=== PATIENT | female | born 2005 | race Hispanic/Latino ===

== ENCOUNTER 2024-01-30 09:13 | Emergency (ER) | payer SELFPAY ==
[2024-01-30 09:18] VITALS: BP 128/71
--- NOTE | 2024-01-30 09:29 | ED.GENMED ---
History of Present Illness
General
Chief Complaint: Cold/Flu/URI Symptoms
Time Seen by Provider: 01/30/24 09:22
History of Present Illness
History of Present Illness:
18-year-old previously healthy female presents to the emergency department for evaluation of chest tightness and fever as well as body aches and chills for the past 3 days. Cough is generally dry and nonproductive. No dyspnea. No pleuritic chest
pain. Denies any leg swelling. No ill contacts.
Past History
Past History
ED Past Medical History: None
ED Past Surgical History: None
Patient has exhibited threatening behavior?: No
PSI?: No
Review of Systems
Review of Systems
Allergies reviewed?: Yes
All Other Systems: ROS reviewed and negative except as documented in HPI and ROS
Phy Exam
Physical Exam
Physical Exam:
GEN: Well appearing, NAD, WDWN
HEENT: Oral mucosa moist, no scleral icterus
Cardiac: mildly tachycardic, regular, no murmur
Lung: No respiratory distress, no tachypnea, lungs clear to auscultation bilaterally
MSK: No gross deformity or injuries
Skin: Good color, no pallor or jaundice, no rashes
Neuro: AO x3, moves all extremities freely
Psych: Calm, cooperative
Sepsis
Sepsis Screening
Sepsis Assessment: Sepsis Ruled Out
Sepsis Screen
Sepsis Screen: Sepsis Ruled Out
Date: 01/30/24
Time: 16:43
Course
Orders/Labs/Results
Orders:
Orders
01/30/24 09:28
Acetaminophen [Tylenol] 1,000 mg PO NOW STA
01/30/24 09:35
COVID-19 Antigen Urgent
Source: Nasal Swab
Influenza A+B Rapid Molecular Urgent
HUSEYIN Source: Nasal Swab
Specimen Description:
Vital Signs
Initial and Last Documented VS:
Initial Vital Signs
Temp Pulse Resp BP Pulse Ox
100.8 F H 112 16 128/71 99
01/30/24 09:18 01/30/24 09:18 01/30/24 09:18 01/30/24 09:18 01/30/24 09:18
Last Documented Vital Signs
Temp Pulse Resp BP Pulse Ox
100.8 F H 105 16 118/78 99
01/30/24 09:18 01/30/24 10:15 01/30/24 10:15 01/30/24 10:15 01/30/24 10:15
MDM/Problems Addressed
MDM/Problems Addressed:
Patient positive for influenza A. Not hypoxic with no signs of respiratory distress. No indication for imaging or labs. Do not see indication for antivirals at this time particular given duration of onset. Discussed supportive care
*Critical Care Note
Total Time (30-74mins, 75-104mins- exclusive of procedures): Not Applicable
ED Attending Note
-
Portions of this chart may have been created with voice recognition software.� Occasional wrong word or��sound alike� substitutions may have occurred due to the inherent limitations of voice recognition software.
Discharge Plan
Departure
Patient Disposition: Home (Routine Discharge)
Date of Disposition: 01/30/24
Time of Disposition: 10:01
Patient with high blood pressure during this ER visit?: No
Discharge Problem:
Influenza A
Instructions: Flu in adults - ED discharge instructions
Prescriptions:
No Action
ondansetron 4 mg tablet,disintegrating
4 mg PO TIDPRN PRN (Reason: nausea/vomiting) Qty: 7 0RF
Referrals:
Albert Wilson MD [Family Provider] -
Stand Alone Forms: Return to Work
Interventions
Interventions:
*Risk Screen - Suicide Last Done: 01/30/24 09:18
*General Assessment Last Done: 01/30/24 09:18
*Neglect/Abuse Screening Last Done: 01/30/24 09:18
ED- Fall Risk Assessment Last Done: 01/30/24 10:16
*ED COVID-19 Vaccine History Last Done: 01/30/24 10:16
*Nursing Disposition Last Done: 01/30/24 10:16
ED- Pulmonary Assessment Last Done: 01/30/24 10:16
Discharge Date and Time
Discharge Date/Time: 01/30/24 10:16
Print Language: TELUGU
[2024-01-30] MEDS: TYLENOL 1000 MG PO (09:39)
[2024-01-30 09:57] LABS: COVID-19 Antigen Negative (Negative)
[2024-01-30 10:15] VITALS: BP 118/78
== END 2024-01-30 10:16 | disposition home or self-care (01) ==
LOC: EMR 09:13
PROVIDERS: Physician Assistant; EMERGENCY PHYSICIAN Student in an Organized Health Care Education/Training Program; FAMILY PHYSICIAN Family Medicine
DX: J10.1 Influenza due to other identified influenza virus with other respiratory manifestations (principal)
CPT/HCPCS: 99283; 87502; 87811

== ENCOUNTER 2024-05-31 22:30 | Emergency (ER) | payer SELFPAY ==
[2024-05-31 22:32] VITALS: BP 118/71
[2024-05-31 23:20] VITALS: BMI 40.1
[2024-05-31 23:24] VITALS: BP 104/63
[2024-05-31 23:35] LABS: Urine Albumin 1+ (Neg - Trace); Urine Bilirubin Negative (Negative); Urine Character Clear (Clear); Urine Color Yellow; Urine Glucose Negative (Negative); Urine Ketone Negative (Negative); Urine Leukocyte Negative (Negative); Urine Nitrite Negative (Negative); Urine Occult Blood Negative (Negative); Urine Specific Gravity 1.025 (<1.030); Urine Urobilinogen Negative (Neg - 1+)
[2024-05-31 23:37] LABS: % Basophils 0.6 % (0-2); % Eosinophils 0.8 % (0-6); % Immature Granulocytes 0.2 % (0-0.5); % Lymphocytes 22.5 % (20.5-51.1); % Monocytes 6.2 % (1.7-9.3); % Neutrophils 69.7 % (42.2-75.2); Absolute Basophils 0.1 10^3/uL (0-0.2); Absolute Eosinophils 0.1 10^3/uL (0-0.7); Absolute Lymphocytes 2.4 10^3/uL (1.2-3.4); Absolute Monocytes 0.7 10^3/uL (0.1-0.6); Absolute Neutrophils 7.3 10^3/uL (1.4-6.5); Hematocrit 36.3 % (37.0-47.0); Hemoglobin 12.8 g/dL (12.0-16.0); Mean Corp Hgb Conc. 35.3 g/dL (33.0-37.0); Mean Corpuscular Hgb 32.2 pg (27.0-31.0); Mean Corpuscular Volume 91.4 fL (81.0-99.0); Mean Platelet Volume 9.4 fL (7.4-10.4); Nucleated Red Blood Cells % 0 %; Platelet Count 274 10^3/uL (130-400); Red Blood Cell Count 3.97 10^6/uL (4.20-5.40); Red Cell Dist. Width 12.6 % (11.5-14.5); White Blood Cell Count 10.5 10^3/uL (4.8-10.8)
[2024-05-31 23:53] LABS: ALT (SGPT) 46 U/L (0-35); AST (SGOT) 24 U/L (14-36); Albumin 4.6 g/dl (3.5-5.0); Alkaline Phosphatase 91 U/L (38-126); Blood Urea Nitrogen 10 mg/dl (7-17); Carbon Dioxide 21 mmol/L (22-30); Chloride 109 mmol/L (98-107); Estimated Creatinine Clearance > 125 ml/min; Glucose 96 mg/dl (70-99); Lipase 61 U/L (23-300); Sodium 142 mmol/L (135-145); Total Bilirubin 0.6 mg/dl (0.2-1.3); Total Protein 7.4 g/dl (6.3-8.2); eGFR > 60.00
[2024-05-31 23:55] LABS: HCG, Serum Qualitative Screen Negative
[2024-06-01] VITALS: BP 98/62
[2024-06-01] MEDS: NSS 1000 IV (00:06)
[2024-06-01] MEDS: ZOFRAN 4 MG IV (00:06)
[2024-06-01] MEDS: TORADOL 15 MG IV (00:07)
--- NOTE | 2024-06-01 00:14 | ED.GENMED ---
History of Present Illness
General
Chief Complaint: Abdominal Pain
Time Seen by Provider: 05/31/24 23:14
History of Present Illness
History of Present Illness:
Patient is a 19-year-old woman presenting to the emergency department with diarrhea and abdominal pain. Patient states that she recently came back from [facility] about 2 weeks ago. For the past week she has had daily diarrhea. It is nonbloody.
Today she developed nausea vomiting. She is having cramping sensation in her upper abdomen. She has been having some chills. No recent sick contacts. No antibiotics.
Past History
Past History
ED Past Medical History: None
ED Past Surgical History: None
Patient has exhibited threatening behavior?: No
PSI?: No
Phy Exam
Physical Exam
Physical Exam:
GENERAL: in no acute distress
HEENT: normocephalic, extraocular movements intact, moist oral mucosa
NECK: normal inspection
RESPIRATORY: no respiratory distress, clear to auscultation bilaterally
CARDIOVASCULAR: regular rate and rhythm
ABDOMEN/: soft, non-distended, bilateral upper quadrant tenderness to palpation, no rebound or guarding
EXTREMITIES: non-tender, no edema/swelling
NEUROLOGIC: awake and alert, moves all extremities
SKIN: warm
Course
Orders/Labs/Results
Orders:
Orders
05/31/24 23:03
IV Insert/Care/Rem.- Treatment PRN
05/31/24 23:05
Test Result ONCE
05/31/24 23:18
Complete Blood Count/With Diff Urgent
Comprehensive Metabolic Panel Urgent
HCG, Serum Qualitative Screen Urgent
Comment: Notify provider if positive test present
Lipase Urgent
Urinalysis Reflex To Culture Urgent
Date Specimen was Collected: 05/31/24
Time Specimen was Collected: 23:05
Urine Microscopic Reflex Cult Urgent
06/01/24 00:01
CT Abd/pelvis W Iv Cont Urgent
Comment:
Reason For Exam: upper abd pain
0.9% Sodium Chloride 1000 ml [Nss] 1,000 ml IV BOLUS
Ondansetron Injectable [Zofran] 4 mg IV NOW STA
06/01/24 00:03
Ketorolac [Toradol] 15 mg .ROUTE .STK-MED ONE
06/01/24 00:06
Ketorolac [Toradol] 15 mg IV NOW STA
06/01/24 02:02
Electrocardiogram (*1) Urgent
Reason for Study: QTc Monitoring
EKG- Treatment ONCE
Abnormal Lab Results
05/31/24
23:18
RBC 3.97 L 10^6/uL
(4.20-5.40)
Hct 36.3 L %
(37.0-47.0)
MCH 32.2 H pg
(27.0-31.0)
Absolute Neuts (auto) 7.3 H 10^3/uL
(1.4-6.5)
Absolute Monos (auto) 0.7 H 10^3/uL
(0.1-0.6)
Chloride 109 H mmol/L
(98-107)
Carbon Dioxide 21 L mmol/L
(22-30)
ALT 46 H U/L
(0-35)
Urine Bacteria (Reflex) Few A
(Negative)
Urine Albumin (Reflex) 1+ A
(Neg - Trace)
05/31/24 23:18
05/31/24 23:18
Vital Signs
Initial and Last Documented VS:
Initial Vital Signs
Temp Pulse Resp BP Pulse Ox
98.5 F 97 16 118/71 98
05/31/24 22:32 05/31/24 22:32 05/31/24 22:32 05/31/24 22:32 05/31/24 22:32
Last Documented Vital Signs
Temp Pulse Resp BP Pulse Ox
98.5 F 92 16 109/73 94
05/31/24 22:32 05/31/24 23:24 05/31/24 22:32 06/01/24 02:16 06/01/24 02:12
MDM/Problems Addressed
Differential Diagnosis Includes:
Patient is a 19-year-old woman presenting to the emergency department 6 days of diarrhea and now with vomiting and upper abdominal pain. Vitals are unremarkable and exam does show very mild tenderness to the upper quadrant. Likely viral
gastroenteritis versus pancreatitis versus biliary pathology though less likely. Blood work obtained is unremarkable. Will give fluids antiemetics and pain control. Will proceed with CT abdome.
*Critical Care Note
Total Time (30-74mins, 75-104mins- exclusive of procedures): Not Applicable
Update Note
Update Note:
Blood work is unremarkable. CT scan per my interpretation with no obvious abnormality. Per the official read there is some air-fluid levels in the distal small bowel in prominence of the mesenteric lymph nodes suspicious for gastroenteritis.
Patient is tolerating p.o. Will discharge at this time. Will give short course of Zofran
ED Attending Note
-
Portions of this chart may have been created with voice recognition software.� Occasional wrong word or��sound alike� substitutions may have occurred due to the inherent limitations of voice recognition software.
Discharge Plan
Departure
Patient Disposition: Home (Routine Discharge)
Patient with high blood pressure during this ER visit?: No
Discharge Problem:
Gastroenteritis
Instructions: Diarrhea in teens and adults, Nausea and Vomiting, Adult (DC)
Prescriptions:
New
ondansetron 4 mg tablet,disintegrating
4 mg PO Q8H PRN (Reason: nausea and vomiting) 3 Days Qty: 7 0RF
No Action
ondansetron 4 mg tablet,disintegrating
4 mg PO TIDPRN PRN (Reason: nausea/vomiting) Qty: 7 0RF
Referrals:
Albert Wilson MD [Family Provider] -
Activity Restrictions/Additional Instructions:
You have been evaluated in the Emergency Department today for nausea and vomiting and diarrhea. Your evaluation suggests that your symptoms are most likely due to viral illness which will improve on its own with rest and fluids. Remember to drink
plenty of fluids at home. I did prescribe you a nausea medicine called Irais that you may use as needed.
Please follow up with your primary care physician within two days.
Return to the Emergency Department if you experience worsening or uncontrolled pain, inability to tolerate fluids by mouth, difficulty breathing, fevers 100.4�F or greater, recurrent vomiting, or any other concerning symptoms.
Thank you for choosing us for your care.
Interventions
Interventions:
*Risk Screen - Suicide Last Done: 05/31/24 22:32
*General Assessment Last Done: 05/31/24 22:35
*Neglect/Abuse Screening Last Done: 05/31/24 22:32
*ED- Fall Risk Assessment Last Done: 05/31/24 22:35
*ED COVID-19 Vaccine History Last Done: 05/31/24 22:35
*Nursing Disposition Last Done: 06/01/24 02:22
KL-[id number]-[id number] Assessment Last Done: 05/31/24 23:23
Discharge Date and Time
Discharge Date/Time: 06/01/24 02:23
Print Language: UKRAINIAN
[2024-06-01 01:09] LABS: Urine Squamous Cell 21-25 /LPF (Few)
[2024-06-01 01:10] LABS: Urine Amorphous Seen; Urine Bacteria Few (Negative); Urine Red Blood Cell 0-2 /HPF (0-2); Urine White Cell 0-2 /HPF (0-5)
[2024-06-01 02:16] VITALS: BP 109/73
== END 2024-06-01 02:23 | disposition home or self-care (01) ==
LOC: EMR 22:30
PROVIDERS: Student in an Organized Health Care Education/Training Program; EMERGENCY PHYSICIAN Student in an Organized Health Care Education/Training Program; FAMILY PHYSICIAN Family Medicine
DX: K52.9 Noninfective gastroenteritis and colitis, unspecified (principal)
CPT/HCPCS: 99284; 96374; 96375; 96361; 74177; 80053; 81003; 81015; 83690; 84703; 85025; 93005; Q9967

== ENCOUNTER → 2024-11-05 10:49 | Outpatient (REF) | payer OTHER, SELFPAY ==
[2024-11-05 11:08] LABS: Hematocrit 40.3 % (37.0-47.0); Hemoglobin 13.7 g/dL (12.0-16.0); Mean Corp Hgb Conc. 34.0 g/dL (33.0-37.0); Mean Corpuscular Volume 94.2 fL (81.0-99.0); Nucleated Red Blood Cells % 0 %; Platelet Count 274 10^3/uL (130-400); Red Cell Dist. Width 12.7 % (11.5-14.5)
[2024-11-05 11:34] LABS: ALT (SGPT) 94 U/L (0-35); AST (SGOT) 47 U/L (14-36); Albumin 4.6 g/dl (3.5-5.0); Alkaline Phosphatase 78 U/L (38-126); Blood Urea Nitrogen 8 mg/dl (7-17); Calcium 9.1 mg/dl (8.4-10.2); Carbon Dioxide 26 mmol/L (22-30); Chloride 106 mmol/L (98-107); Glucose 99 mg/dl (70-99); HDL Cholesterol 50 mg/dl; LDL Cholesterol, Calculated 93 mg/dl; Potassium 4.2 mmol/L (3.5-5.1); Sodium 138 mmol/L (135-145); Total Protein 7.8 g/dl (6.3-8.2); Very Low Density Lipoprotein 26 mg/dl (0-30); eGFR > 60.00
[2024-11-05 12:23] LABS: Glycohemoglobin (HgbA1c) 5.3 % (4.0-5.6)
== END ==
LOC: CLINIC 10:49
PROVIDERS: ATTENDING PHYSICIAN Nurse Practitioner Family
DX: Z00.01 Encounter for general adult medical examination with abnormal findings (principal); Z83.3 Family history of diabetes mellitus
CPT/HCPCS: 36415; 80053; 80061; 83036; 84439; 84443; 85025